=== PATIENT | male | born 1980 | race Caucasian/White ===

== ENCOUNTER 2017-03-24 08:12 | Inpatient (IN) | payer OTHER ==
[~2017-03-24 08:12] MED LIST: NS IV ONE; POVIDONE-IODINE 20 ML in SODIUM CL IRRIG SOLUTION 500 ML IRR ONE; ROPIVACAINE 0.2% 80 MG, EPINEPHrine 0.2 MG, KETOROLAC TROMETHAMINE 30 MG in SYRINGE 0 ML IU ONE; TRANEXAMIC ACID IV ONE
[2017-03-24] MEDS ORDERED: DEXAMETHASONE 4 MG/ML VIAL IVP ONE (08:27)
[2017-03-24] MEDS ORDERED: ceFAZolin 2 GM/SWFI 2 GM/20 ML SYR IVP ONE (08:27)
[2017-03-24] MEDS ORDERED: ACETAMINOPHEN 325 MG TAB PO ONE (08:27)
[2017-03-24] MEDS ORDERED: FAMOTIDINE 20 MG TAB PO ONE (08:27)
[2017-03-24] MEDS ORDERED: LR 1,000 ML IV ONE (08:33)
[2017-03-24] MEDS ORDERED: LIDOCAINE 1% 2 ML INJ ID PRN (08:33)
--- NOTE | 2017-03-24 09:27 | PDANEPAE ---
ANE History of Present Illness 36 year old male with OA of left hip presents for left hip resurfacing. ANE Past Medical History - Cardiovascular History Hx Hypertension: No Hx Arrhythmias: No Hx Chest Pain: No Hx Coronary Artery / Peripheral Vascular Disease: No Hx CHF / Valvular Disease: No Hx Palpitations: No - Pulmonary History Hx COPD: No Hx Asthma/Reactive Airway Disease: No Hx Recent Upper Respiratory Infection: No Hx Oxygen in Use at Home: No Hx Sleep Apnea: No Sleep Apnea Screening Result - Last Documented: Negative - Neurologic History Hx Cerebrovascular Accident: No Hx Seizures: No Hx Dementia: No - Endocrine History Hx Diabetes: No Hypothyroid: No Hyperthyroid: No Obesity: mild - Renal History Hx Renal Disorders: No - Liver History Hx Hepatic Disorders: No - Neurological & Psychiatric Hx Hx Neurological and Psychiatric Disorders: No - Cancer History Hx Cancer: No - Congenital Disorder History Hx Congenital Disorders: No - GI History GERD: no Hx Gastrointestinal Disorders: No - Other Health History Other Health History: OA L hip - Chronic Pain History Chronic Pain: Yes (L hip) - Surgical History Prior Surgeries: craniotomy for benign tumor '12. R knee scope ANE Review of Systems Review of systems is: negative Review of Systems: - Exercise capacity Exercise capacity: >=4 METS METS (RN): 4 METS - Systems Muscolosketal: Reports: joint pain ANE Patient History - Allergies Allergies/Adverse Reactions: No Known Allergies Allergy (Verified 03/03/17 10:13) - Home Medications Home medications: home medication list seen and reviewed Home Medications: Glucosamine/Chondroitin [Glucosamine/Chondroitin (*)] 1 each PO HS 02/25/17 [ Last Taken 03/03/17] Herbals/Supplements -Info Only 1 ea PO DAILY 02/25/17 [Last Taken 03/03/17] Ibuprofen [Motrin (*)] 200 mg PO DAILY PRN 02/25/17 [Last Taken 03/03/17] [place]-3 Fatty Acids [Fish Oil 1000 mg (*)] 1,000 mg PO HS 02/25/17 [Last Taken 03/03/17] - NPO status NPO Status: no food or drink >8 hours - Anes Hx Anes Hx: no prior problems - Smoking Hx Smoking Status: Never smoked Marijuana use: No - Alcohol Use Alcohol Use: Occasionally - Family Anes Hx Family Anes Hx: neg - N/A ANE Labs/Vital Signs - Vital Signs Vital Signs: reviewed preoperatively; see RN documention for details Height: 187.96 cm Weight: 108.862 kg ANE Physical Exam - Airway Neck exam: FROM Mallampati Score: Class 1 Mouth exam: normal dental/mouth exam - Pulmonary Pulmonary: no respiratory distress - Cardiovascular Cardiovascular: regular rate and rhythym - ASA Status ASA Status: I ANE Anesthesia Plan Anesthesia Plan: GA w LMA, MAC, spinal Total IV Anesthesia: No
[2017-03-24] MEDS ORDERED: MIDAZOLAM 2 MG/2 ML VIAL ONE (09:50)
[2017-03-24] MEDS ORDERED: LR 500 ML IV PRN (09:51)
[2017-03-24] MEDS ORDERED: OXYCODONE/APAP 5/325 TAB PO PRN (09:51)
[2017-03-24] MEDS ORDERED: NALOXONE HCL 0.4 MG/ML INJ IVP PRN (09:51)
[2017-03-24] MEDS ORDERED: HYDROmorphONE/DILAUDID 1 MG/ML INJ IVP PRN (09:51)
[2017-03-24] MEDS ORDERED: ONDANSETRON 4 MG/2 ML VIAL IVP PRN ×2 (09:51→12:44)
[2017-03-24] MEDS ORDERED: fentaNYL 100 MCG/2 ML INJ IVP PRN (09:51)
[2017-03-24] MEDS ORDERED: MIDAZOLAM 2 MG/2 ML VIAL IVP ONE (09:51)
[2017-03-24] MEDS ORDERED: PROPOFOL/EMULSION 500 MG/50 ML BOTTLE IV ONE ×5 (09:54→11:47)
[2017-03-24] MEDS ORDERED: fentaNYL 100 MCG/2 ML INJ ONE ×2 (10:56→11:17)
[2017-03-24] MEDS ORDERED: ONDANSETRON 4 MG/2 ML VIAL ONE (11:08)
[2017-03-24] MEDS ORDERED: DEXAMETHASONE 4 MG/ML VIAL ONE (11:08)
[2017-03-24] MEDS: ceFAZolin 1 GM/5 ML SYR ONE ×2 (11:15→11:18)
--- NOTE | 2017-03-24 12:32 | PDHPUP ---
History & Physical Update H&P update statement: This history and physical update is based on an assessment of the patient which was completed after admission or registration (within 24 hours), but prior to the surgery/procedure. H&P update: H&P reviewed & patient examined, no change in patient's condition since H&P completed
--- NOTE | 2017-03-24 12:33 | POSTOPPROG ---
Post Op Note Date of Operation: 03/24/17 Surgeon: Malcolm Fan Leaf Fat Scraper: Godwin Saleh/Richard Wolf Anesthesiologist: Dr. Richard Tapia Anesthesia: GET(General Endotracheal), IV Sedation, Spinal Post-op Diagnosis: left hip severe degenerative arthritis. Procedure: Left hip [place] hip resurfacing arthroplasty. Inf/Abcess present in the surg proc area at time of surgery?: No EBL: 100-500
[2017-03-24] MEDS ORDERED: CYCLOBENZAPRINE 10 MG TAB PO PRN (12:44)
[2017-03-24] MEDS ORDERED: LACTULOSE 20 GM/30 ML UDCUP PO PRN (12:44)
[2017-03-24] MEDS ORDERED: BISACODYL 10 MG SUPP PR PRN (12:44)
[2017-03-24] MEDS ORDERED: POLYETHYLENE GLYCOL 3350 17 GM PKT PO PRN (12:44)
[2017-03-24] MEDS ORDERED: PROMETHAZINE HCL 25 MG/ML INJ IVP PRN (12:44)
[2017-03-24] MEDS ORDERED: ONDANSETRON DISINTEGRATING 4 MG TAB PO PRN (12:44)
[2017-03-24] MEDS ORDERED: TEMAZEPAM 15 MG CAP PO PRN (12:44)
[2017-03-24] MEDS ORDERED: METOCLOPRAMIDE 10 MG/2 ML VIAL IVP PRN (12:44)
[2017-03-24] MEDS ORDERED: NS 500 ML IV PRN (12:44)
[2017-03-24] MEDS ORDERED: PROMETHAZINE HCL 25 MG SUPPR PR PRN (12:44)
[2017-03-24] MEDS ORDERED: diphenhydrAMINE 25 MG CAP PO PRN (12:44)
[2017-03-24] MEDS ORDERED: KETOROLAC 30 MG/1 ML SDV IVP PRN (12:44)
[2017-03-24] MEDS ORDERED: DIPHENOXYLATE/ATROPINE LOMOTIL 1 TAB PO PRN (12:44)
[2017-03-24] MEDS ORDERED: MAGNESIUM HYDROXIDE 30 ML UDCUP PO PRN (12:44)
[2017-03-24] MEDS ORDERED: LR 1,000 ML IV SCH (13:00)
--- NOTE | 2017-03-24 13:33 | POSTANESTH ---
Post Anesthetic Evaluation Cardiovascular Status: Normal, Stable, Similar to Pre-Op Cond Respiratory Status: Normal, Stable, Similar to Pre-op Cond. Level of Consciousness/Mental Status: Can Participate in Eval, Alert and Oriented Pain Control: Adequate, Prn Tx Ordered Nausea/Vomiting Control: Adequate, Prn Tx Ordered Complications Possibly Related to Anesthesia: None Noted
--- NOTE | 2017-03-24 13:39 | GOP ---
[f rep st] OPERATIVE REPORT DATE OF OPERATION: 03/23/2017 SURGEON: Malcolm Fan MD MANUFACTURING INDUSTRIAL ENGINEER: Godwin Saleh, ENVIRONMENTAL SCIENTIST and Joey Wolf, PAC. ANESTHESIA: Attempted spinal, general anesthesia and IV sedation. PREOPERATIVE DIAGNOSIS: Left hip severe degenerative arthritis. POSTOPERATIVE DIAGNOSIS: Left hip severe degenerative arthritis. PROCEDURE PERFORMED: 03/23/2017, a left hip Maricarmen hip resurfacing arthroplasty. FINDINGS: DESCRIPTION OF PROCEDURE: The patient was given 2 g of IV Ancef preoperatively within 60 minutes of surgery. He also received IV tranexamic acid at a dose of 20 mg/kg. He was placed on the operating room table and given spinal anesthesia with Marcaine by Dr. Richard Tapia. He was then placed supine a nd given IV sedation. A Montemayor catheter was not used. He wore a KEVIN stocking and SCD on the nonopera tive leg. He was rolled to the right lateral decubitus position. An axillary roll was used, and all pressure points were carefully padded. The position was secured with the pegboard table attachment. I was careful to lock his pelvis in a vertical position. His perineum was isolated with plastic ad hesive drapes. The left hip and left lower extremity were prepped with ChloraPrep. They were draped free using sterile sheets, stockinette, and Ioban plastic adhesive drape. The [employer] time-out was performed to verify the correct patient identity and the c orrect surgical side. The [place] time-out was also performed. I made a 7-inch straight oblique posterolateral hip skin incision. Subcutaneous tissues were sharply divided, and hemostasis was obtained using electrocautery. The fascia cristina was identified and split along the axis of its fibers. I curved posteriorly and proximally, and split the fascia of the glut eus elio and bluntly split the muscle fibers in line with their orientation. His sciatic nerve wa s identified and protected throughout the procedure. The Charnley self-retaining retractor was inser kevin. His exposure was difficult because of his size. He is 6 feet 3 inches and weighs 240 pounds. His BMI is 30. He had a very muscular thigh and buttocks. The external rotators and the posterior h ip capsule were divided as separate layers to the base of the femoral neck, tagged, and reflected pos teriorly. The gluteus elio tendon was divided and tagged in order to improve exposure and release tension on the sciatic nerve. His hip was dislocated posteriorly. I used a sizing gauge to check t he diameter of the neck and concluded that 54 mm was the proper head size. I performed a complete ci rcumferential capsulotomy. With difficulty, I was able to retract the femoral head anteriorly and holley periorly, and hold it out of place with the appropriate retractors. The remnant of his damaged labru m was excised. His acetabulum was reamed sequentially up to 60 mm. I selected a [place] monobloc k porous-coated acetabular component with an outside diameter of 60 mm. This was firmly impacted and was a very tight fit. I was careful to determine proper inclination and anteversion. I used the tr ansverse acetabular ligament and other acetabular bony landmarks to help determine proper cup orienta tion. He had a moderately-large posterior-inferior osteophyte which I removed with an osteotome and rongeur. I was careful to leave a good lip of bone and capsule extending beyond the anterior-inferio r lip of the metal cup. I then returned to preparation of the femoral head. Using appropriate jigs and guides, I inserted a guide pin into the femoral head and neck. I was careful to position it in such a way that there woul d be no notching of the neck. The large sterile metal goniometer was used to check the neck shaft an gle. I reamed over the guide pin and inserted the reaming guide. I then used the cylindrical reamer down to the head and neck junction. This was followed by the chamfer reamer and the flat reamer. H is head was sized for 54 mm. There was no impingement or damage to the neck. He had very large dens e anterior neck osteophytes, which I removed with a rongeur. I drilled a small hole in the lesser tr ochanter and inserted a suction cannula to create negative pressure in the medullary canal. Small ho les were drilled on the flat and chamfered surfaces of the prepared head for cement anchors. The hea d was thoroughly cleaned with the pulsating lavage and carefully dried. I used a CarboJet device to blow dry the cancellous surfaces. A single batch of Simplex cement with tobramycin was mixed. At ab out 50 seconds, I poured the liquid cement into the head component, inserted it onto the femoral head and impacted it into place. Excess cement was removed before it hardened. The acetabulum was irrigated, cleaned, and inspected and the hip was reduced. Stability and range of motion were checked. I placed my finger along the anterior aspect of the acetabular component and f lexed the hip to 110 degrees. There was no anterior impingement. The suction cannula on the lesser trochanter was removed. The wound was thoroughly irrigated with a dilute Betadine solution. 80 cc o f the joint anesthetic cocktail were injected into the capsule, the deep musculature, and subcutaneou s tissues along the skin edges. His sciatic nerve was reinspected and looked unharmed. The external rotators and the posterior hip c apsule were repaired in separate layers with #2 FiberWire sutures through drill holes in the greater trochanter. The gluteus elio was repaired with two #2 FiberWire sutures. The fascia cristina was rep aired first with 2 interrupted [id number] #2 FiberWire sutures followed by a running #2 barbed E thicon Stratafix PDO suture. Subcutaneous tissues were closed with a running 0 barbed Ethicon Strata fix Monoderm suture. The skin was closed with a running 3-0 barbed Ethicon Stratafix Monoderm subcut icular suture. The skin edges were reapproximated and sealed with Dermabond glue. The wound was cov ered with a strip of sterile Mepilex water-proof dressing. The estimated blood loss was about 500 mL. I used the Maricarmen hip resurfacing system. The acetabular component was 60 mm in diameter and pre ss-fit. The femoral head was 54 mm and cemented. He was awakened from anesthesia and rolled to the supine position on his [facility]. A long-leg compressive stocking and SCD were placed on the o perative leg. He wore a stocking and SCD on the opposite leg during the procedure. An abduction pil low was placed between his knees. He was taken to PACU in satisfactory condition. There were no rec ognized intraoperative complications. The sponge and needle counts were correct on 2 occasions. Godwin Saleh and Richard Wolf acted as surgical assistants. Their assistance was a medical necess ity for safe completion of the procedure. /[id number]/MODL
[2017-03-24] MEDS: oxyCODONE IR 5 MG TAB PO PRN ×2 (16:40→17:56)
[2017-03-24] MEDS: TRANEXAMIC ACID 650 MG TAB PO SCH (16:40)
[2017-03-24 16:55] VITALS: RESP 16
[2017-03-24] MEDS: traMADol 50 MG TAB PO PRN (17:56)
[2017-03-24] MEDS: ceFAZolin 2 GM/DEXTROSE 100 ML IV SCH (17:57)
[2017-03-24] MEDS: ACETAMINOPHEN 325 MG TAB PO SCH (17:57)
[2017-03-24] MEDS: ASPIRIN 325 MG TAB PO SCH (21:04)
[2017-03-24] MEDS: FAMOTIDINE 20 MG TAB PO SCH (21:04)
[2017-03-24] MEDS: SENNOSIDES/DOCUSATE SODIUM TAB PO SCH (21:05)
[2017-03-25] MEDS: ceFAZolin 2 GM/DEXTROSE 100 ML IV SCH (02:07)
[2017-03-25 05:22] LABS: HEMATOCRIT 37.9 % (40.0-51.0); HEMOGLOBIN 12.8 g/dL (13.7-17.5)
[2017-03-25] MEDS: ACETAMINOPHEN 325 MG TAB PO SCH ×3 (05:56→11:43)
--- NOTE | 2017-03-25 07:33 | SOAPPROG ---
SOAP Progress Note Assessment/Plan: Assessment: Awake and alert. Afebrile. Moderate pain. Voiding spontaneously. Dressing is dry. Postop H&H is good. Postop films look excellent. He has been up and walking. Plan: Continue physical therapy today. Discharged later today. 03/25/17 07:32 Objective: Vital Signs Temp Pulse Resp BP Pulse Ox 36.8 C 57 L 16 114/56 L 94 03/25/17 04:00 03/25/17 04:00 03/25/17 04:00 03/25/17 04:00 03/25/17 04:00 Laboratory Results 03/25/17 04:46 03/24/17 03/25/17 03/26/17 05:59 05:59 05:59 Intake Total 5085 Output Total 1500 Balance 3585 ICD10 Worksheet Patient Problems: Problems Problem Status Onset Osteoarthritis of left hip Acute
[2017-03-25] MEDS: FAMOTIDINE 20 MG TAB PO SCH (08:41)
[2017-03-25] MEDS: SENNOSIDES/DOCUSATE SODIUM TAB PO SCH (08:41)
[2017-03-25] MEDS: ASPIRIN 325 MG TAB PO SCH (08:41)
[2017-03-25] MEDS: oxyCODONE IR 5 MG TAB PO PRN ×2 (08:42→11:43)
[2017-03-25] MEDS: TRANEXAMIC ACID 650 MG TAB PO SCH ×2 (08:42)
[2017-03-25] MEDS: traMADol 50 MG TAB PO PRN (08:43)
[2017-03-25 08:46] VITALS: BP 108/62; PULSE 76; TEMP 98.1; O2SAT 92
[2017-03-25] MEDS ORDERED: FERROUS SULFATE 140 MG TAB.ER PO SCH (09:00)
--- NOTE | 2017-03-25 10:33 | GDS ---
[f rep st] DISCHARGE SUMMARY ADMISSION DIAGNOSIS: Left hip arthritis. DISCHARGE DIAGNOSIS: Left hip arthritis. OPERATION PERFORMED: , a left hip Mar[place] hip resurfacing arthroplasty. POSTOPERATIVE COMPLICATIONS: None. CONDITION ON DISCHARGE: Improved. DESCRIPTION OF HOSPITAL COURSE: The patient was admitted to the hospital the morning of surgery. His admission CBC was normal. The same day, under a combination of Marcaine spinal, general anesthesia, and sedation, he underwent a left hip Mar[place]en hip resurfacing arthroplasty. On the first postoperative day, his hemoglobin and hematocrit were 12.8 and 37.9. He was seen by Physical Therapy and made good progress with ambulation and stairs. By the time of discharge, he was afebrile, his wound was clean and dry, and he was independent walking. DISPOSITION: Patient is discharged to his home in [facility]. DISCHARGE INSTRUCTIONS: He will start outpatient physical therapy next week. He has prescriptions for oxycodone and tramadol for pain control. Use KEVIN stockings for 1 week. Continue aspirin 325 mg p.o. daily for 21 days. I will see him back in the office on 04/15/2017. If any problems, he is to call me at the office. /[id number]/MODL MTDD
--- NOTE | 2017-03-25 14:12 | ASDISCHSUM ---
Discharge Information Plan Status:Home with No Needs Medically Cleared to Leave: Discharge Date:03/25/2017 12:29 PM D/C Disposition:Home, Routine, Self-Care ADT D/C Disposition:Home, Routine, Self-Care Projected Discharge Date:03/25/2017 12:29 PM Transportation at D/C: Discharge Delay Reason: Follow-Up Date:03/25/2017 12:29 PM Discharge Slot: Final Diagnosis: Placement Information Patient Contact Information Contact Name:SHANTEL Relationship: Address: City: [facility] Phone: [facility] Code: Email: Financial Information Financial Class:HMO and PPO Plans Primary Plan Desc:[place] Primary Plan Number:[id number] Secondary Plan Desc: Secondary Plan Number: Assessment Information Case Management Discharge Plan Note Case Management Discharge Discharge Order Complete? Answers: Yes Discharge Comments Notes: [facility] pre-call pt independent. PT clears pt for home. Pt medically stable for d/c, no CM d/c needs identified. Date Signed: 03/25/2017 02:11 PM Electronically Signed By:SVETLANA Mares Intervention Information
== END 2017-03-25 12:29 | disposition home or self-care (01) | DRG 470 ==
LOC: F3N 08:12
PROVIDERS: ADMIT Orthopaedic Surgery; ATTEND Orthopaedic Surgery
PROC: 0SRB0J9 Replacement of Left Hip Joint with Synthetic Substitute, Cemented, Open Approach (ICD-10-PCS; principal; 2017-03-24 10:00)
DX: M16.12 Unilateral primary osteoarthritis, left hip (principal); G40.909 Epilepsy, unspecified, not intractable, without status epilepticus
CPT/HCPCS: 97110-GP; 97116-GP; 97161-GP; 97165-GO; C1713; C1769; J0171; J0690; J1100; J1885; J2250; J2405; J2704; J2795; J3010